=== PATIENT | male | born 1975 | race Two or more races ===

== ENCOUNTER 2017-07-26 10:21 | Emergency (ER) | payer MEDICAID ==
[~2017-07-26] VITALS: Ht 157.5 cm; Wt 59.0 kg
[2017-07-26] MEDS ORDERED: HYDROcodone-ACET 10/325MG TAB PO ONE (11:45)
[2017-07-26 12:38] VITALS: BP 135/74
== END 2017-07-26 12:41 | disposition home or self-care (01) ==
LOC: ER 10:21
DX: S82.841A Displaced bimalleolar fracture of right lower leg, initial encounter for closed fracture (principal); S09.90XA Unspecified injury of head, initial encounter; R42 Dizziness and giddiness; W17.89XA Other fall from one level to another, initial encounter; Y93.89 Activity, other specified; Y92.89 Other specified places as the place of occurrence of the external cause; Y99.8 Other external cause status
CPT/HCPCS: 29515; 70450; 73590; 93005